=== PATIENT | female | born 1980 | race Asian ===

== ENCOUNTER 2019-01-02 12:40 | Emergency (ER) | payer OTHER ==
[~2019-01-02] VITALS: Ht 152.4 cm; Wt 72.0 kg
[~2019-01-02 12:40] MED LIST: BACTRIM; FLOMAX; VICODIN
[2019-01-02 14:34] LABS: BASOPHILS % 0.7 % (0.0-2.0); EOSINOPHILS % 1.4 % (0.0-5.0); HEMATOCRIT. 37.7 % (36.0-48.0); LYMPHOCYTES % 32.7 % (20.0-50.0); MEAN CORPUSCULAR HEMOGLOBIN 21.2 pg (28.0-32.0); MEAN CORPUSCULAR VOLUME 66.6 fL (81.0-99.0); MEAN PLATELET VOLUME 9.4 fl (7.4-10.4); MONOCYTES % 6.3 % (2.0-8.0); NEUTROPHILS % 58.9 % (40.0-76.0); PLATELET 293 x1000/uL (130-400); RED BLOOD CELL COUNT 5.66 mill/uL (4.2-5.4); RED CELL DISTRIBUTION WIDTH 17.7 % (11.6-14.6)
[2019-01-02 14:42] LABS: CHLORIDE 108 mEq/L (98-107)
[2019-01-02] MEDS ORDERED: CLONIDINE 0.1MG TABLET PO ONE (15:15)
[2019-01-02] MEDS ORDERED: AMLODIPINE 5MG TABLET PO ONE (15:15)
[2019-01-02 15:18] LABS: PLATELET ESTIMATE NORMAL
[2019-01-02 15:19] LABS: CLARITY URINE CLOUDY (CLEAR); COLOR URINE YELLOW (YELLOW); KETONES URINE NEGATIVE (NEGATIVE); LEUKOCYTE ESTERASE URINE 1+ (NEGATIVE); NITRITE URINE NEGATIVE (NEGATIVE); OCCULT BLOOD URINE NEGATIVE (NEGATIVE); PROTEIN URINE NEGATIVE (NEGATIVE); SPECIFIC GRAVITY URINE 1.005 (1.005-1.030); UROBILINOGEN URINE 0.2 E.U./dL (0.2-1.0)
[2019-01-02 15:40] LABS: *AMPHETAMINES SCREEN URINE NEGATIVE (NEGATIVE); *BARBITURATES SCREEN URINE NEGATIVE (NEGATIVE); *BENZODIAZEPINES SCREEN URINE NEGATIVE (NEGATIVE); METHADONE URINE SCREEN NEGATIVE (NEGATIVE); OPIATES URINE SCREEN NEGATIVE (NEGATIVE)
[2019-01-02 15:41] LABS: *COCAINE SCREEN URINE NEGATIVE (NEGATIVE); CANNABINOID URINE SCREEN NEGATIVE (NEGATIVE); PHENCYCLIDINE URINE SCREEN NEGATIVE (NEGATIVE)
[2019-01-02] MEDS ORDERED: POTASSIUM CHLORIDE 20MEQ TABLET SR PO ONE (16:15)
[2019-01-02] MEDS ORDERED: SULFAMETHOXAZOLE/TRIMETHOPRIM 800/160MG TABLET PO ONE (16:15)
[2019-01-02 16:51] VITALS: BP 150/85
== END 2019-01-02 16:52 | disposition home or self-care (01) ==
LOC: ER 12:40
DX: I10 Essential (primary) hypertension (principal); E87.6 Hypokalemia; N39.0 Urinary tract infection, site not specified
CPT/HCPCS: 71045; 80305; 81003; 83880; 84484; 93005; 99284

== ENCOUNTER 2020-01-12 11:15 | Emergency (ER) | payer OTHER ==
[~2020-01-12] VITALS: Ht 152.4 cm; Wt 74.0 kg
[2020-01-12 11:35] VITALS: BP 198/110
== END 2020-01-12 14:09 | disposition home or self-care (01) ==
LOC: ER 11:15
DX: F45.8 Other somatoform disorders (principal); R03.0 Elevated blood-pressure reading, without diagnosis of hypertension
CPT/HCPCS: 70360; 99283